=== PATIENT | female | born 1980 | race Caucasian/White ===

== ENCOUNTER 2019-01-07 23:22 | Emergency (ER) | payer MEDICAID ==
[~2019-01-07] VITALS: Ht 152.4 cm; Wt 149.7 kg
[2019-01-07 23:39] VITALS: Ht 152.4 cm; Wt 149.7 kg
--- NOTE | 2019-01-08 02:04 | ERD ---
ER Documentation Chief Complaint Chief Complaint C/O WORSENING EPIGASTRIC AP RADIATING TO CHEST X1 HR HPI The patient is a 38-year-old female, presenting to the ER because of recurrent epigastric abdominal pain, has similar symptoms previously, denies fever, chills, neck pain, chest pain, dyspnea, vomiting, dysuria, diarrhea. She does not smoke nor drink Past medical history: Gastritis Past surgical history: None ROS All systems reviewed and are negative except as per history of present illness. Medications Home Meds Active Scripts Pantoprazole (Protonix) 40 Mg Tabec, 40 MG PO DAILY, #10 TAB Prov:KUNAL HATFIELD MD 01/08/19 Allergies Allergies: Coded Allergies: No Known Allergy (Unverified , 01/08/19) Physical Exam Vitals Vital Signs Date Temp Pulse Resp B/P (MAP) Pulse Ox O2 O2 Flow FiO2 Time Delivery Rate 01/08/19 84 18 127/79 99 Room Air 04:00 (95) 01/07/19 98.5 91 19 133/76 100 23:39 (95) Physical Exam Const: No acute distress. Head: Atraumatic. Eyes: Normal Conjunctiva. ENT: Normal External Ears, Nose and Mouth. Neck: Full range of motion. No meningismus. Resp: Clear to auscultation bilaterally. Cardio: Regular rate and rhythm. Abd: Soft, non distended, normal bowel sounds, non tender. Skin: No petechiae or rashes. Back: No midline or flank tenderness. Ext: No cyanosis, or edema. Neur: Awake and alert. No focal deficit Psych: Normal Mood and Affect. Result Diagram: 01/08/19 0058 01/08/19 0058 Results 24 hrs Laboratory Tests Test 01/08/19 00:58 01/08/19 02:30 01/08/19 02:32 White Blood Count 8.6 10^3/ul Red Blood Count 4.32 10^6/ul Hemoglobin 12.4 g/dl Hematocrit 37.3 % Mean Corpuscular Volume 86.3 fl Mean Corpuscular Hemoglobin 28.7 pg Mean Corpuscular 33.2 g/dl Hemoglobin Concent Red Cell Distribution Width 16.4 % Platelet Count 259 10^3/UL Mean Platelet Volume 11.3 fl Immature Granulocytes % 0.300 % Neutrophils % 66.3 % Lymphocytes % 22.0 % Monocytes % 5.3 % Eosinophils % 5.6 % Basophils % 0.5 % Nucleated Red Blood Cells % 0.0 /100WBC Immature Granulocytes # 0.030 10^3/ul Neutrophils # 5.7 10^3/ul Lymphocytes # 1.9 10^3/ul Monocytes # 0.5 10^3/ul Eosinophils # 0.5 10^3/ul Basophils # 0.0 10^3/ul Nucleated Red Blood Cells # 0.0 10^3/ul Sodium Level 139 mmol/L Potassium Level 3.7 mmol/L Chloride Level 103 mmol/L Carbon Dioxide Level 26 mmol/L Anion Gap 10 Blood Urea Nitrogen 14 mg/dl Creatinine 0.60 mg/dl Est Glomerular Filtrat Rate mL/min > 60 mL/min Glucose Level 133 mg/dl Calcium Level 9.0 mg/dl Total Bilirubin 0.3 mg/dl Direct Bilirubin 0.00 mg/dl Indirect Bilirubin 0.3 mg/dl Aspartate Amino Transf (AST/SGOT) 230 IU/L Alanine 182 IU/L Aminotransferase (ALT/SGPT) Alkaline Phosphatase 142 IU/L Total Protein 8.0 g/dl Albumin 4.2 g/dl Globulin 3.80 g/dl Albumin/Globulin Ratio 1.10 Lipase 147 U/L Bedside Urine pH (LAB) 7.0 Bedside Urine Protein (LAB) Trace Bedside Urine Glucose (UA) Negative Bedside Urine Ketones (LAB) Negative Bedside Urine Blood 1+ Bedside Urine Nitrite (LAB) Negative Bedside Urine Leukocyte Esterase Negative (L POC Beta HCG, Qualitative NEGATIVE Current Medications Medications Dose Sig/Roland Start Time Status Last (Trade) Ordered Route PRN Stop Time Admin Dose Reason Admin 1 tab ONCE ONCE 01/08/19 DC 01/08/19 Acetaminophen PO 02:30 02:27 / 01/08/19 02:31 Hydrocodone Bitart ([place] (5/325)) Ondansetron 4 mg ONCE STAT 01/08/19 DC 01/08/19 HCl (Zofran ODT 02:11 02:27 Odt) 01/08/19 02:13 Procedures/[place] [id number] Radiology Main Line: [phone] DIAGNOSTIC IMAGING REPORT Patient: PAULINO GEORGE : 1980 Age: 38 Sex: F MR #: [id number] DOS: 01/08/19 0211 Ordering MD: KUNAL HATFIELD MD Location: E/R Room/Bed: PROCEDURE: US Abdomen limited. CLINICAL INDICATION: Abdominal pain TECHNIQUE: Ramirez scale and color Doppler imaging of the right upper quadrant COMPARISON: None FINDINGS: Note some technical limitation due to the patients body habitus. Liver is mildly enlarged measuring 18.3 cm and mildly hyperechoic suggesting mild hepatic steatosis. No focal hepatic lesion is seen. There is appropriately directed flow within the main portal vein. Gallbladder is unremarkable without gallstones or pericholecystic fluid. Gallbladder wall thickness within normal limits. Unknown sonographic López's s ign. No intra or extrahepatic biliary ductal dilatation is seen. The extrahepatic common duct measures 4.1 mm. Right renal length measures at least 9.3 cm. No stone or hydronephrosis is seen. The visualized proximal and mid pancreas are uniform. Distal pancreas obscured by upper abdominal bowel gas. Where visualize the aorta is nondilated although was not specifically evaluated. The IVC was seen. No ascites in the right upper quadrant. IMPRESSION: Study slightly limited by bowel gas, and body habitus. No acute abnormality seen in the right upper quadrant. No gallstones or sonographic evidence of acute cholecystitis. Hepatomegaly and hepatic steatosis. RPTAT: [facility] Physician Chacorta Date Time Electronically viewed and signed by Physician Chacorta on 01/08/2019 03:08 RF/ CC: KUNAL HATFIELD MD [id number] MEDICAL MAKING DECISION: The patient is a 38-year-old female, presenting with epigastric abdominal pain of unclear etiology, was treated with [place] 5 mg p.o. for pain and Zofran ODT for nausea with good response, is stable for outpatient follow-up The differential diagnoses considered include but are not limited to cholelithiasis, cholecystitis, choledocholithiasis, cholangitis, pancreatitis, hepatitis, gastritis, peptic ulcer disease, gastric ulcer, appendicitis, cystitis, diverticulitis, partial small bowel obstruction. Departure Diagnosis: Primary Impression: Abdominal pain Condition: Good Comments She was discharged with Protonix I discussed the findings with the patient. I advised the patient to follow-up with the primary physician in about 2-3 days, sooner if needed and return if any concern. Disclaimer: Inadvertent spelling and grammatical errors are likely due to EHR/dictation software use and do not reflect on the overall quality of patient care. Also, please note that the electronic time recorded on this note does not necessarily reflect the actual time of the patient encounter. KUNAL HATFIELD MD Jan 08, 2019 02:04
[2019-01-08] MEDS ORDERED: ONDANSETRON (ODT) 4 MG TAB ODT STA (02:11)
[2019-01-08] MEDS ORDERED: HYDROCODONE/APAP (5/325) TAB PO ONE (02:30)
[2019-01-08] MEDS ORDERED: PANT40TA4 PO (03:39)
[2019-01-08 04:00] VITALS: BP 127/79; PULSE 84; RESP 18
== END 2019-01-08 04:00 | disposition home or self-care (01) ==
LOC: E/R 23:22
DX: R10.13 Epigastric pain (principal)
CPT/HCPCS: 36415; 76705; 80053; 81003; 81025; 83690; 85025; 93005; Z7502; Z7610